=== PATIENT | female | born 1970 | race Caucasian/White ===

== ENCOUNTER 2021-03-11 13:34 | Emergency (ER) | payer OTHER ==
[~2021-03-11] VITALS: Ht 157.5 cm; Wt 94.8 kg
[2021-03-11] MEDS ORDERED: LIDO700A20 TOP (15:30)
== END 2021-03-11 15:53 | disposition home or self-care (01) ==
LOC: ER 13:34
DX: S09.90XA Unspecified injury of head, initial encounter (principal); S16.1XXA Strain of muscle, fascia and tendon at neck level, initial encounter; W01.198A Fall on same level from slipping, tripping and stumbling with subsequent striking against other object, initial encounter
CPT/HCPCS: 70450; 96372; 99283-25; A9270; J1885